=== PATIENT | female | born 1975 | race African-American/Black ===

== ENCOUNTER 2021-09-01 04:35 | Day surgery (SDC) | payer BC ==
[2021-08-30 16:23] VITALS: BMI 32.9
[~2021-09-01 04:35] MED LIST: CEFAZOLIN 2 GM in DEXTROSE 5%-WATER - 100 ML IVPB ONE
[2021-09-01] MEDS ORDERED: ACETAMINOPHEN INJECTION 100 ML IVPB ONE (13:01)
[2021-09-01] MEDS ORDERED: KETAMINE HCL 200 MG/20 ML VIAL ONE (13:07)
[2021-09-01] MEDS ORDERED: PROPOFOL 20 ML ONE (13:07)
[2021-09-01] MEDS ORDERED: MIDAZOLAM HCL 2 MG/2 ML SINGLE DOSE VIAL ONE (13:07)
[2021-09-01] MEDS ORDERED: FENTANYL CITRATE/PF 50 MCG/ML VIAL ONE ×5 (13:08→15:05)
[2021-09-01] MEDS ORDERED: ceFAZolin SODIUM 1 GM VIAL IVPB ONE ×2 (13:30→13:40)
[2021-09-01] MEDS ORDERED: ceFAZolin SODIUM 1 GM VIAL ONE (13:41)
[2021-09-01] MEDS ORDERED: DEXAMETHASONE SOD PHOSPHATE 4 MG/1 ML VIAL ONE (13:41)
[2021-09-01] MEDS ORDERED: LIDOCAINE HCL/PF 2% SDV 5ML VIAL ONE (13:41)
[2021-09-01] MEDS ORDERED: KETOROLAC TROMETHAMINE 30 MG/1 ML VIAL ONE (13:41)
[2021-09-01] MEDS ORDERED: IBUPROFEN 800 MG/8 ML IJ IVPB PRN (14:36)
[2021-09-01] MEDS ORDERED: ACETAMINOPHEN 325 MG TABLET (FP) PO PRN (14:36)
[2021-09-01] MEDS ORDERED: IBUPROFEN 600 MG TABLET (FP) PO PRN (14:36)
[2021-09-01] MEDS ORDERED: LACTATED RINGERS SOLUTION 1,000 ML IV SCH (14:45)
[2021-09-01] MEDS ORDERED: oxyCODONE HCL 5 MG TABLET PO PRN ×2 (14:53)
[2021-09-01] MEDS ORDERED: ONDANSETRON 4 MG/2 ML VIAL IVPUSH PRN (14:53)
[2021-09-01] MEDS ORDERED: oxyCODONE HCL 5 MG TABLET ONE (16:37)
[2021-09-01] MEDS ORDERED: IBUPROFEN 600 MG TABLET (FP) PO ONE (17:43)
[2021-09-01 18:28] VITALS: BP 170/84; PULSE 68; TEMP 97.8
== END 2021-09-01 18:28 | disposition home or self-care (01) ==
LOC: JASU-SURG 04:35
PROVIDERS: ATTEND Obstetrics & Gynecology
PROC: 0U5B8ZZ Destruction of Endometrium, Via Natural or Artificial Opening Endoscopic (ICD-10-PCS; principal; 2021-09-01 13:00)
PROC: 0UDB7ZZ Extraction of Endometrium, Via Natural or Artificial Opening (ICD-10-PCS; 2021-09-01 13:00)
DX: N92.0 Excessive and frequent menstruation with regular cycle (principal)
CPT/HCPCS: 88305-TC; 94760